=== PATIENT | male | born 1945 | race Caucasian/White ===

== ENCOUNTER 2018-12-16 19:42 | Observation (INO) | payer MEDICARE, OTHER ==
[~2018-12-16 19:42] MED LIST: GLYCOPYRROLATE 1 MG/5 ML VIAL ONE; NEOSTIGMINE METHYLSULFATE 10 MG/10 ML VIAL ONE; ROCURONIUM BROMIDE INJ 50 MG/5 ML VIAL IV ONE; SUCCINYLCHOLINE CHLORIDE INJ 200 MG/10 ML VIAL ONE
[2018-12-16] MEDS ORDERED: HYDROMORPHONE HCL INJ/PF 2 MG/ML AMPULE IV ONE ×2 (20:17→22:26)
[2018-12-16] MEDS ORDERED: ONDANSETRON HCL INJ/PF 4 MG/2 ML SDV IV ONE (20:17)
[2018-12-16] MEDS ORDERED: NORMAL SALINE 1000 ML 1,000 ML IV ONE (20:17)
--- NOTE | 2018-12-16 20:21 | ER Document Report ---
ED GI/ - General Chief Complaint: Lower Abdominal Pain Stated Complaint: STOMACH PAIN Time Seen by Provider: 12/16/18 20:10 Notes: Patient is a 73-year-old male that comes to the emergency department for chief complaint of abdominal pain. He states pain started this morning, he reports pain when he woke up, this was at first only in the lower abdomen generally and then progressed to almost the entire abdomen with sharp pain. He had a couple of loose stools today, denies nausea or vomiting. He ate breakfast but has not eaten since. He denies fever. He denies any abdominal surgeries, he has no cardiovascular history other than hypertension. He is visiting here on vacation. He is generally quite healthy and only remaining medical history reported is GERD, gout, asthma. at bedside. TRAVEL OUTSIDE OF THE [place] IN LAST 30 DAYS: No - Related Data Allergies/Adverse Reactions: aspirin Allergy (Verified 12/16/18 19:46) Past Medical History - General Information source: Patient, Relative - Social History Smoking Status: Never Smoker Frequency of alcohol use: None Drug Abuse: None Lives with: Family Family History: Reviewed & Not Pertinent Patient has suicidal ideation: No Patient has homicidal ideation: No - Past Medical History Cardiac Medical History: Reports: Hx Hypertension Pulmonary Medical History: Reports: Hx Asthma Renal/ Medical History: Denies: Hx Peritoneal Dialysis GI Medical History: Reports: Hx Gastroesophageal Reflux Disease - Immunizations Hx Diphtheria, Pertussis, Tetanus Vaccination: Yes Review of Systems - Review of Systems Constitutional: No symptoms reported EENT: No symptoms reported Cardiovascular: No symptoms reported Respiratory: No symptoms reported Gastrointestinal: See HPI Genitourinary: No symptoms reported Male Genitourinary: No symptoms reported Musculoskeletal: No symptoms reported Skin: No symptoms reported Hematologic/Lymphatic: No symptoms reported Neurological/Psychological: No symptoms reported Physical Exam - Vital signs Vitals: Temp Pulse BP Pulse Ox 97.5 F 86 145/77 H 93 12/16/18 19:49 12/16/18 19:49 12/16/18 19:49 12/16/18 19:49 - Notes Notes: GENERAL: Alert and interactive but appears uncomfortable, winces with movement HEAD: Normocephalic, atraumatic. EYES: Pupils equal, round, and reactive to light. Extraocular movements intact. ENT: Oral mucosa moist, tongue midline. Oropharynx unremarkable. Airway patent. LUNGS: Clear to auscultation bilaterally, no wheezes, rales, or rhonchi. No respiratory distress. HEART: Regular rate and rhythm. No murmur ABDOMEN: Generalized tenderness with wincing and guarding, this is most notice able in the right general lower abdomen. There is positive McBurney's tenderness. Abdomen is not rigid, does not appear to have rebound tenderness. GENITOURINARY: Deferred EXTREMITIES: Moves all 4 extremities spontaneously. No edema, normal radial and dorsalis pedis pulses bilaterally. No cyanosis. BACK: no cervical, thoracic, lumbar midline tenderness. No saddle anesthesia, normal distal neurovascular exam. Moves all extremities in full range of motion. NEUROLOGICAL: Alert and oriented x3. Normal speech. Cranial nerves II through XII grossly intact. PSYCH: Normal affect, normal mood. SKIN: Warm, dry, normal turgor. No rashes or lesions noted. Course - Re-evaluation Re-evalutation: Patient is very tender with guarding in the general right lower abdomen, he also has some generalized peritonitis. Clinical suspicion is appendicitis, could be diverticulitis, perforation, etc. Patient is uncomfortable but not toxic. He is not febrile or tachycardic. He is not hypotensive. CBC shows mild leukocytosis at 11.2 with elevation of neutrophils but no bandemia. Chemistry unremarkable. Lactic acid is not elevated. Urinalysis shows mild elevated specific gravity, patient has been given IV fluids. CT of the abdomen and pelvis with IV contrast reading of acute appendicitis. This is consistent with patient's clinical presentation. Discussed with patient and , will contact surgery. Given Zosyn, patient has been n.p.o. since breakfast, giving more IV fluids. 12/16/18 22:[address] Payne, general surgeon on-call, he will come evaluate the patient Dr. Payne is taking the patient to the operating room. - Vital Signs Vital signs: Temp Pulse Resp BP Pulse Ox 100.2 F 86 14 144/83 H 95 12/17/18 00:21 12/16/18 19:49 12/16/18 23:01 12/16/18 23:01 12/16/18 23:01 - Laboratory Result Diagrams: 12/16/18 20:23 12/16/18 20:23 Laboratory results interpreted by me: 12/16/18 12/16/18 12/16/18 20:23 20:23 21:00 WBC 11.2 H Seg Neutrophils % 84.5 H Lymphocytes % 8.0 L Absolute Neutrophils 9.4 H Glucose 177 H Urine Ketones TRACE H Discharge - Discharge Clinical Impression: Acute appendicitis Qualifiers: Acute appendicitis type: with generalized peritonitis Appendicitis gangrene presence: without gangrene Appendicitis perforation presence: unspecified whether perforation present Appendicitis abscess presence: without abscess Qualified Code(s): K35.20 - Acute appendicitis with generalized peritonitis, without abscess Abdominal pain Qualifiers: Abdominal location: generalized Qualified Code(s): R10.84 - Generalized abdominal pain Condition: Stable Disposition: ADMITTED OBSERVATION Admitting Provider: Surgicalist Unit Admitted: OR
--- NOTE | 2018-12-16 20:33 | EKG REPORT ---
SEVERITY:- BORDERLINE ECG - SINUS RHYTHM PROBABLE LEFT ATRIAL ABNORMALITY : Confirmed by: Lora Hung 16-Dec-2018 20:32:01
[2018-12-16 20:35] LABS: ABSOLUTE LYMPHOCYTES (AUTO) 0.9 10^3/uL (0.5-4.7); ABSOLUTE MONOCYTES (AUTO) 0.8 10^3/uL (0.1-1.4); ABSOLUTE NEUT (AUTO) 9.4 10^3/uL (1.7-8.2); BASOPHILS % (AUTO) 0.4 % (0-2); EOSINOPHILS % (AUTO) 0.3 % (0-6); HEMATOCRIT 41.1 % (37.9-51.0); HEMOGLOBIN 14.1 g/dL (13.5-17.0); MEAN CORPUSCULAR HEMOGLOBIN 30.9 pg (27.0-33.4); MEAN CORPUSCULAR HGB CONC 34.3 g/dL (32.0-36.0); MEAN CORPUSCULAR VOLUME 90 fl (80-97); MONOCYTES % (AUTO) 6.8 % (3-13); PLATELET COUNT 219 10^3/uL (150-450); RED BLOOD COUNT 4.56 10^6/uL (4.35-5.55); RED CELL DISTRIBUTION WIDTH 13.4 % (11.5-14.0); SEGMENTED NEUTROPHILS % (AUTO) 84.5 % (42-78); TOTAL CELLS COUNTED % (AUTO) 100 %; WHITE BLOOD COUNT 11.2 10^3/uL (4.0-10.5)
[2018-12-16 20:50] LABS: ALANINE AMINOTRANSFERASE 28 U/L (21-72); ALBUMIN 4.1 g/dL (3.5-5.0); ALKALINE PHOSPHATASE 90 U/L (38-126); ANION GAP 11 (5-19); ASPARTATE AMINO TRANSFERASE 28 U/L (17-59); BILIRUBIN,DIRECT 0.2 mg/dL (0.0-0.4); BILIRUBIN,TOTAL 1.2 mg/dL (0.2-1.3); BLOOD UREA NITROGEN 16 mg/dL (7-20); CALCIUM 9.5 mg/dL (8.4-10.2); CARBON DIOXIDE 30 mmol/L (22-30); CHLORIDE 98 mmol/L (98-107); GLUCOSE 177 mg/dL (75-110); POTASSIUM 3.6 mmol/L (3.6-5.0); TOTAL PROTEIN 6.8 g/dL (6.3-8.2)
[2018-12-16 21:13] LABS: APPEARANCE,URINE CLEAR; BILIRUBIN,URINE NEGATIVE (NEGATIVE); COLOR,URINE YELLOW; GLUCOSE, URINE NEGATIVE (NEGATIVE); KETONES,URINE TRACE mg/dL (NEGATIVE); LEUKOCYTE ESTERASE,URINE NEGATIVE (NEGATIVE); NITRITE,URINE NEGATIVE (NEGATIVE); PROTEIN,URINE NEGATIVE (NEGATIVE); URINE SPECIFIC GRAVITY 1.023; UROBILINOGEN,URINE NEGATIVE mg/dL (<2.0)
--- NOTE | 2018-12-16 22:13 | RADIOLOGY REPORT (SQ) ---
CT ABDOMEN PELVIS WITH IV CONTRAST EXAM DATE: 12/16/2018 9:11 PM CDT HISTORY: Abdominal pain. COMPARISON: None. TECHNIQUE: CT scan of the abdomen and pelvis was performed with IV contrast. This exam was performed according to our departmental dose-optimization program, which includes automated exposure control, adjustment of the mA and/or kV according to patient size and/or use of iterative reconstruction technique. FINDINGS: Atelectasis at the lung bases. No pleural or pericardial effusion. Subcentimeter cysts are seen in the liver. Gallbladder, bleeding, pancreas, adrenal glands, and kidneys are normal with simple cysts in the left kidney. No hydronephrosis. Prostate gland measures 5.1 cm. The appendix is dilated measuring 1 cm (coronal image 32 and axial image 73). There is surrounding inflammatory stranding and wall thickening consistent with acute appendicitis. No abscess or free air is seen. Remainder of the small and large bowel are normal. Aorta is normal caliber. There are mild degenerative changes of the spine. IMPRESSION: Findings suggesting acute appendicitis without rupture or abscess.
[2018-12-16] MEDS ORDERED: PIPERACILLIN/TAZOBACTAM 3.375 GM VIAL IV ONE (22:26)
[2018-12-16] MEDS ORDERED: NORMAL SALINE 1000 ML 1,000 ML IV PRN (22:32)
--- NOTE | 2018-12-16 23:42 | PDOC H&P ---
History of Present Illness Admission Date/PCP: 12/16/18 Patient complains of: Abdominal pains History of Present Illness: PATY WARE is a 73 year old male woke up at 7 am today with severe RLQ pains. Pains getting worse and went to ED. Ct scan of abdomen showed acute appendicitis. Associated diarrhea. Denies chills/fever. History of GERD, asthma and hypertension. He has severe pains which is now radiating to the left side. Past Medical History Cardiac Medical History: Reports: Hypertension Pulmonary Medical History: Reports: Asthma GI Medical History: Reports: Gastroesophageal Reflux Disease Social History Smoking Status: Never Smoker Family History Parental Family History Reviewed: Yes Children Family History Reviewed: No Sibling(s) Family History Reviewed.: No Medication/Allergy Allergies/Adverse Reactions: aspirin Allergy (Verified 12/16/18 19:46) Review of Systems Constitutional: PRESENT: as per HPI Physical Exam Vital Signs: Temp Pulse Resp BP Pulse Ox 100.2 F 86 14 144/83 H 95 12/16/18 23:13 12/16/18 19:49 12/16/18 23:01 12/16/18 23:01 12/16/18 23:01 Intake & Output 12/15/18 12/16/18 12/17/18 06:59 06:59 06:59 Intake Total 1000 Balance 1000 Weight 96.9 kg General appearance: PRESENT: severe distress Head exam: PRESENT: atraumatic Eye exam: PRESENT: conjunctiva pink Mouth exam: PRESENT: dry mucosa Neck exam: PRESENT: full ROM Respiratory exam: PRESENT: clear to auscultation adan Cardiovascular exam: PRESENT: RRR Pulses: PRESENT: normal radial pulses Vascular exam: PRESENT: normal capillary refill GI/Abdominal exam: PRESENT: soft, tenderness - RLQ and LLQ with rebound Rectal exam: PRESENT: deferred Extremities exam: PRESENT: full ROM Musculoskeletal exam: PRESENT: ambulatory Neurological exam: PRESENT: altered, oriented to person, oriented to place, oriented to time, oriented to situation Psychiatric exam: PRESENT: appropriate affect Skin exam: PRESENT: normal color, warm Results Laboratory Results: 12/16/18 20:23 12/16/18 20:23 12/16/18 12/16/18 12/16/18 20:23 20:23 20:45 WBC 11.2 H RBC 4.56 Hgb 14.1 Hct 41.1 MCV 90 MCH 30.9 MCHC 34.3 RDW 13.4 Plt Count 219 Seg Neutrophils % 84.5 H Lymphocytes % 8.0 L Monocytes % 6.8 Eosinophils % 0.3 Basophils % 0.4 Absolute Neutrophils 9.4 H Absolute Lymphocytes 0.9 Absolute Monocytes 0.8 Absolute Eosinophils 0.0 Absolute Basophils 0.0 Sodium 138.7 Potassium 3.6 Chloride 98 Carbon Dioxide 30 Anion Gap 11 BUN 16 Creatinine 0.80 Est GFR ( Amer) > 60 Est GFR (Non-Af Amer) > 60 Glucose 177 H Lactic Acid 1.6 Calcium 9.5 Total Bilirubin 1.2 AST 28 ALT 28 Alkaline Phosphatase 90 Total Protein 6.8 Albumin 4.1 Lipase 29.1 Urine Color Urine Appearance Urine pH Ur Specific Clive Urine Protein Urine Glucose (UA) Urine Ketones Urine Blood Urine Nitrite Ur Leukocyte Esterase Urine WBC (Auto) 12/16/18 21:00 WBC RBC Hgb Hct MCV MCH MCHC RDW Plt Count Seg Neutrophils % Lymphocytes % Monocytes % Eosinophils % Basophils % Absolute Neutrophils Absolute Lymphocytes Absolute Monocytes Absolute Eosinophils Absolute Basophils Sodium Potassium Chloride Carbon Dioxide Anion Gap BUN Creatinine Est GFR ( Amer) Est GFR (Non-Af Amer) Glucose Lactic Acid Calcium Total Bilirubin AST ALT Alkaline Phosphatase Total Protein Albumin Lipase Urine Color YELLOW Urine Appearance CLEAR Urine pH 6.0 Ur Specific Clive 1.023 Urine Protein NEGATIVE Urine Glucose (UA) NEGATIVE Urine Ketones TRACE H Urine Blood NEGATIVE Urine Nitrite NEGATIVE Ur Leukocyte Esterase NEGATIVE Urine WBC (Auto) 0 Impressions: Abdomen/Pelvis CT 12/16/18 21:11 IMPRESSION: Findings suggesting acute appendicitis without rupture or abscess. Assessment & Plan - Diagnosis (1) Acute appendicitis Qualifiers: Acute appendicitis type: with generalized peritonitis Appendicitis gangrene presence: without gangrene Appendicitis perforation presence: unspecified whether perforation present Appendicitis abscess presence: without abscess Qualified Code(s): K35.20 - Acute appendicitis with generalized peritonitis, without abscess Is this a current diagnosis for this admission?: Yes - Time Time Spent: 30 to 50 Minutes - Inpatient Certification Medical Necessity: Need For IV Fluids, Need for Pain Control, Need for IV Antibiotics, Need for Surgery - Plan Summary Plan Summary: For laparoscopic appendectomy Started IV antibiotics
[2018-12-17] MEDS ORDERED: ONDANSETRON HCL INJ/PF 4 MG/2 ML SDV ONE (00:19)
[2018-12-17] MEDS ORDERED: DEXAMETHASONE SOD PHOSPHATE INJ 4 MG/1 ML VIAL ONE (00:19)
[2018-12-17] MEDS ORDERED: MIDAZOLAM 2 MG/2 ML INJ ONE (00:19)
[2018-12-17] MEDS ORDERED: FENTANYL CITRATE INJ/PF 100 MCG/2 ML AMPUL ONE (00:19)
[2018-12-17] MEDS ORDERED: MORPHINE SULFATE 10 MG/ML INJ ONE (00:19)
[2018-12-17] MEDS ORDERED: PROPOFOL INJ 200 MG/20 ML VIAL IV ONE (00:20)
[2018-12-17] MEDS ORDERED: BUPIVACAINE HCL 0.25 % INJ/PF (2.5 MG/1 ML) 30 ML VIAL ONE (00:20)
[2018-12-17] MEDS ORDERED: FENTANYL CITRATE INJ/PF 100 MCG/2 ML AMPUL IV PRN ×3 (01:22)
[2018-12-17] MEDS ORDERED: MORPHINE SULFATE 10 MG/ML INJ IV PRN ×2 (01:22→02:24)
[2018-12-17] MEDS ORDERED: PROMETHAZINE HCL INJ 25 MG/1 ML VIAL IV PRN ×2 (01:22)
[2018-12-17] MEDS ORDERED: MEPERIDINE HCL/PF INJ 25 MG/1 ML DISP.SYRIN IV PRN (01:22)
[2018-12-17] MEDS ORDERED: DIPHENHYDRAMINE HCL 50 MG/ML VIAL IV PRN (01:22)
[2018-12-17] MEDS ORDERED: PIPERACILLIN/TAZOBACTAM 3.375 GM VIAL IV PRN (02:24)
[2018-12-17] MEDS ORDERED: ONDANSETRON HCL INJ/PF 4 MG/2 ML SDV IV PRN (02:25)
[2018-12-17] MEDS ORDERED: KETOROLAC TROMETHAMINE INJ/PF 30 MG/1 ML SDV ONE (04:47)
[2018-12-17] MEDS ORDERED: PIPERACILLIN/TAZOBACTAM 3.375 GM VIAL IV ONE (05:25)
[2018-12-17] MEDS: KETOROLAC TROMETHAMINE INJ/PF 30 MG/1 ML SDV IV SCH ×4 (05:26→23:17)
[2018-12-17] MEDS: PIPERACILLIN SODIUM/TAZOBACTAM 3.375 GM in NORMAL SALINE 100 ML IV SCH ×4 (06:01→23:17)
[2018-12-17 06:43] LABS: HEMATOCRIT 37.3 % (37.9-51.0); HEMOGLOBIN 13.1 g/dL (13.5-17.0); MEAN CORPUSCULAR HEMOGLOBIN 33.1 pg (27.0-33.4); MEAN CORPUSCULAR HGB CONC 35.2 g/dL (32.0-36.0); PLATELET COUNT 174 10^3/uL (150-450); RED BLOOD COUNT 3.96 10^6/uL (4.35-5.55); RED CELL DISTRIBUTION WIDTH 13.4 % (11.5-14.0); WHITE BLOOD COUNT 13.3 10^3/uL (4.0-10.5)
[2018-12-17 06:52] LABS: ANION GAP 7 (5-19); BLOOD UREA NITROGEN 15 mg/dL (7-20); CALCIUM 8.8 mg/dL (8.4-10.2); CARBON DIOXIDE 32 mmol/L (22-30); CHLORIDE 101 mmol/L (98-107); GLUCOSE 162 mg/dL (75-110)
[2018-12-17 06:54] LABS: MEAN CORPUSCULAR VOLUME 94 fl (80-97)
[2018-12-17 07:21] LABS: ABSOLUTE LYMPHOCYTES# (MANUAL) 0.3 10^3/uL (0.5-4.7); ABSOLUTE MONOCYTES # (MANUAL) 0.3 10^3/uL (0.1-1.4); BAND NEUTROPHILS % (MANUAL) 8 % (3-5); BASOPHILS % (MANUAL) 0 % (0-2); EOSINOPHILS % (MANUAL) 0 % (0-6); LYMPHOCYTES % (MANUAL) 2 % (13-45); MONOCYTES % (MANUAL) 2 % (3-13); RBC MORPHOLOGY COMMENT NORMO-CYTIC/CHROMIC; SEGMENTED NEUTROPHILS % (MAN) 88 % (42-78); TOTAL CELLS COUNTED 100
[2018-12-17 07:22] LABS: PLATELET COMMENT ADEQUATE
[2018-12-17] MEDS: ENOXAPARIN SODIUM INJ 40 MG/0.4 ML DISP.SYRIN SUBCUT SCH (09:20)
--- NOTE | 2018-12-17 12:15 | OPERATIVE REPORT E ---
Operative Report NAME: PATY WARE : 1945 AGE: 73Y DATE OF SURGERY: 12/17/2018 ROOM: 205 PREOPERATIVE DIAGNOSIS: Acute appendicitis. POSTOPERATIVE DIAGNOSIS: Acute appendicitis with microperforation. PROCEDURE: Laparoscopic appendectomy. SURGEON: VENKAT BISHOP M.D. INDICATION: This is a 73-year-old male who started complaining of right lower quadrant pains in the morning of 12/16/2018. The patient getting worse and went to ED where a CT scan of the abdomen revealed acute appendicitis. The pains appeared to be moving towards the left lower quadrant when seen in the ED. He was in a lot of pain and was given Dilaudid with some relief, but pain is not completely resolved. He was tender in both lower quadrants with rebound. His white count is slightly elevated. DESCRIPTION OF PROCEDURE: After adequate general anesthesia, the patient was placed in the supine position and the abdomen prepped and draped in the usual sterile fashion. Appropriate timeout was then called. Next, an infraumbilical incision was made and the fascia identified and subsequently divided. The 0 Vicryl sutures were placed on each side of the fascia. The El trocar was then inserted through the fascial defect towards the abdomen. CO2 insufflated to a pressure of 15 mmHg and camera inserted. There was some exudate noted in the right lower quadrant area. Trocars were placed, a suprapubic 5 mm and 12 mm in the left lower quadrant under direct vision. The appendix was then identified and noted to be stuck posteriorly. Appendix was noted to be slightly inflamed the big part. The appendix was then grasped in distal and bluntly dissected and subsequently noted to have dark discoloration at the tip with likely microperforation. The appendix was then cauterized and divided with the use of Harmonic jamilah. The patient's appendix was then identified and noted to be not involved with inflammation. It was subsequently divided with endo-JENNY 45 mm right at the base. While pulling up the appendix, it was spontaneously disconnected about 1 cm from the staple area. The main appendix was then dropped into the right lower quadrant and remaining remnant of the appendix subsequently grasped and staple subsequently fired and released. Adequate hemostasis noted at the stump site. A piece of appendix was placed in the Endobag as well as the larger piece of appendix. It was then pulled out through the umbilical port. El trocar was then placed back in the umbilical area and the stump reinspected and noted to be dry without evidence of bleeding. This area was irrigated and still no evidence of bleeding noted. The rest of the abdomen was then inspected and there was a small amount of yellowish exudate of the left lower quadrant, which was partially suctioned out. The pelvis does not have any evidence of accumulation of fluid. At this point, a 15-Albanian Dontrell drain was then passed through the suprapubic port into the abdominal cavity and placed around the appendiceal stump area towards the area of the liver. All the trocars were removed and drain sutured to the skin with 3-0 nylon. The fascial defect at the umbilical site was then closed with [id number] suture using 0 Vicryl. All the skin incisions were then closed with 4-0 Vicryl undyed in a subcuticular fashion. Local anesthesia infiltrated along the skin incisions and umbilical fascial area. Sterile dressing was placed over the operative site. Needle, instrument, and sponge counts were all correct. Estimated blood loss about 10 mL. The patient was then brought to the recovery room and extubated in satisfactory condition. DICTATING PHYSICIAN: VENKAT BISHOP M.D. [id number] PHY#: [id number] ID: [id number] JOB#: [id number] ACCT: [id number] cc:VENKAT BISHOP M.D. >
[2018-12-17] MEDS: NORMAL SALINE 1000 ML 1,000 ML IV PRN (23:00)
[2018-12-18] MEDS: KETOROLAC TROMETHAMINE INJ/PF 30 MG/1 ML SDV IV SCH ×4 (05:21→23:39)
[2018-12-18] MEDS: PIPERACILLIN SODIUM/TAZOBACTAM 3.375 GM in NORMAL SALINE 100 ML IV SCH ×4 (05:21→23:40)
[2018-12-18] MEDS: NORMAL SALINE 1000 ML 1,000 ML IV PRN ×2 (06:00→21:57)
[2018-12-18 08:16] LABS: ABSOLUTE EOSINOPHILS # (AUTO) 0.1 10^3/uL (0.0-0.6); ABSOLUTE LYMPHOCYTES (AUTO) 1.2 10^3/uL (0.5-4.7); ABSOLUTE MONOCYTES (AUTO) 0.8 10^3/uL (0.1-1.4); ABSOLUTE NEUT (AUTO) 8.4 10^3/uL (1.7-8.2); BASOPHILS % (AUTO) 0.4 % (0-2); EOSINOPHILS % (AUTO) 0.5 % (0-6); HEMATOCRIT 35.3 % (37.9-51.0); HEMOGLOBIN 12.5 g/dL (13.5-17.0); LYMPHOCYTES % (AUTO) 11.7 % (13-45); MEAN CORPUSCULAR HEMOGLOBIN 33.5 pg (27.0-33.4); MEAN CORPUSCULAR HGB CONC 35.5 g/dL (32.0-36.0); MEAN CORPUSCULAR VOLUME 94 fl (80-97); MONOCYTES % (AUTO) 7.2 % (3-13); PLATELET COUNT 193 10^3/uL (150-450); RED BLOOD COUNT 3.74 10^6/uL (4.35-5.55); RED CELL DISTRIBUTION WIDTH 13.5 % (11.5-14.0); SEGMENTED NEUTROPHILS % (AUTO) 80.2 % (42-78); TOTAL CELLS COUNTED % (AUTO) 100 %; WHITE BLOOD COUNT 10.5 10^3/uL (4.0-10.5)
[2018-12-18] MEDS ORDERED: PHENOL/SODIUM PHENOLATE 100 SPRAY/177 ML BOTTLE PO PRN (08:56)
[2018-12-18] MEDS: ENOXAPARIN SODIUM INJ 40 MG/0.4 ML DISP.SYRIN SUBCUT SCH ×2 (09:43→10:30)
[2018-12-19 04:58] LABS: ABSOLUTE BASOPHILS # (AUTO) 0.1 10^3/uL (0.0-0.2); ABSOLUTE EOSINOPHILS # (AUTO) 0.1 10^3/uL (0.0-0.6); ABSOLUTE LYMPHOCYTES (AUTO) 1.1 10^3/uL (0.5-4.7); ABSOLUTE MONOCYTES (AUTO) 0.7 10^3/uL (0.1-1.4); BASOPHILS % (AUTO) 0.9 % (0-2); EOSINOPHILS % (AUTO) 1.7 % (0-6); HEMATOCRIT 35.2 % (37.9-51.0); HEMOGLOBIN 12.1 g/dL (13.5-17.0); LYMPHOCYTES % (AUTO) 13.8 % (13-45); MEAN CORPUSCULAR HEMOGLOBIN 31.6 pg (27.0-33.4); MEAN CORPUSCULAR HGB CONC 34.4 g/dL (32.0-36.0); MEAN CORPUSCULAR VOLUME 92 fl (80-97); MONOCYTES % (AUTO) 8.2 % (3-13); PLATELET COUNT 191 10^3/uL (150-450); RED BLOOD COUNT 3.84 10^6/uL (4.35-5.55); RED CELL DISTRIBUTION WIDTH 13.5 % (11.5-14.0); SEGMENTED NEUTROPHILS % (AUTO) 75.4 % (42-78); TOTAL CELLS COUNTED % (AUTO) 100 %; WHITE BLOOD COUNT 7.9 10^3/uL (4.0-10.5)
[2018-12-19 05:31] LABS: ANION GAP 7 (5-19); BLOOD UREA NITROGEN 18 mg/dL (7-20); CALCIUM 8.7 mg/dL (8.4-10.2); CARBON DIOXIDE 28 mmol/L (22-30); CHLORIDE 107 mmol/L (98-107); GLUCOSE 105 mg/dL (75-110); POTASSIUM 3.5 mmol/L (3.6-5.0)
[2018-12-19] MEDS: KETOROLAC TROMETHAMINE INJ/PF 30 MG/1 ML SDV IV SCH ×2 (05:39→12:14)
[2018-12-19] MEDS: PIPERACILLIN SODIUM/TAZOBACTAM 3.375 GM in NORMAL SALINE 100 ML IV SCH ×2 (05:42→12:14)
[2018-12-19] MEDS: NORMAL SALINE 1000 ML 1,000 ML IV PRN (06:29)
[2018-12-19] MEDS: ENOXAPARIN SODIUM INJ 40 MG/0.4 ML DISP.SYRIN SUBCUT SCH ×2 (09:59→10:07)
[2018-12-19 13:56] VITALS: BP 153/85
--- NOTE | 2018-12-19 21:05 | DISCHARGE SUMMARY E ---
Discharge Summary NAME: PATY WARE : 1945 AGE: 73Y ADMITTED: 12/16/2018 DISCHARGED: 12/19/2018 FINAL DIAGNOSIS: Acute perforated appendicitis. PROCEDURE: Laparoscopic appendectomy, 12/17/2018. Surgeon: Akil Payne MD. HOSPITAL COURSE: This is a 73-year-old male complaining of abdominal pain, primarily on the right side on the morning of admission. He had a CAT scan of the abdomen that showed acute appendicitis. He was noted to have tenderness in both lower quadrants and severe pains with elevated white count. He was then taken to the OR in the track dresser of 12/17/2018 for a laparoscopic appendectomy. A microperforation at the tip of the appendix was noted. He had some exudate along the right side of the appendix, which was suctioned out. A drain also was placed around the area and brought out through the suprapubic port. Subsequent course was relatively uneventful. There was a little delay in the passage of flatus, which was on 12/18/2018, in spite of a liquid diet. On the day of discharge, 12/19/2018, he was able to tolerate a regular diet and white count remained normal. Abdominal drain was then removed. He was able to pass flatus and have a small bowel movement. He was then discharged improved on 12/19/2018 with the above final diagnosis. Patient was given a prescription for clindamycin 500 mg p.o. t.i.d. for 5 days. He is not in this area and his is driving him towards [place]. He was given a prescription for Benadryl for sleep as needed and Toradol p.r.n. for pain as well as the clindamycin antibiotic. He is supposed to see his primary physician this coming week and if there are any questions, they can call us at [facility], in care of the surgical group. In the meantime, he was advised not to do any lifting for the next week. He can shower today or tomorrow. DICTATING PHYSICIAN: AKIL PAYNE M.D. [id number] PHY#: [id number] ID: [id number] JOB#: [id number] ACCT: [id number] cc:AKIL PAYNE M.D. >
== END 2018-12-19 14:05 | disposition home or self-care (01) ==
LOC: ER 19:42 → EH 23:29 → INTOOBSV 12-17 01:50 → OBSVTOIN 12-17 01:50 → 2N 12-17 02:31
PROVIDERS: ADMIT Surgery; ATTEND Surgery
PROC: 0DTJ4ZZ Resection of Appendix, Percutaneous Endoscopic Approach (ICD-10-PCS; principal; 2018-12-17 01:00)
DX: K35.21 Acute appendicitis with generalized peritonitis, with abscess (principal); Z87.19 Personal history of other diseases of the digestive system
CPT/HCPCS: 93005; 36415 ×4; 83605; 83690; 85025 ×4; 80048 ×2; 80053; 81001; 88304 ×2; 74177; 94799; 93010; 00840; 44970; G0378 ×3; J2250; J3490 ×2; A9270; J1100; J3010; J1885 ×3; J2270 ×2; J2710; J1650 ×3; J1170; J0330; J2405 ×2; J7050 ×3; J7030 ×4; J2704; J2543 ×4; 840; 96361; 96365; 96375; 96376; 99285